=== PATIENT | male | born 1985 | race African-American/Black ===

== ENCOUNTER 2022-12-30 17:33 | Inpatient (IN) | payer MEDICAID ==
[~2022-12-30] VITALS: Ht 162.6 cm; Wt 83.0 kg
[~2022-12-30 17:33] MED LIST: BACL10TA; CLON-857; OXCA300S PO; TOPAMAX; VALPORIC ACID; ZONI100C18
[2022-12-30 18:12] LABS: Basophils # (auto) 0 10 ^3/uL (0-0.2); Basophils % (auto) 0.5 % (0.0-2.0); Eosinophils # (auto) 0.1 10 ^3/uL (0-0.8); Eosinophils % (auto) 1.4 % (0.0-7.0); Hematocrit 44.4 % (41.0-53.0); Hemoglobin 15.1 g/dL (13.5-17.5); Lymphocytes # (auto) 1.5 10 ^3/uL (0.4-5.4); Lymphocytes % (auto) 21.7 % (10.0-50.0); Mean Corpuscular Hemoglobin 32.3 pg (28.0-32.0); Mean Corpuscular Hgb Conc. 33.9 g/dL (32.0-36.0); Mean Corpuscular Volume 95.3 fL (80.0-100.0); Monocytes # (auto) 0.6 10 ^3/uL (0-1.3); Monocytes % (auto) 8.5 % (0.0-12.0); Neutrophils # (auto) 4.8 10 ^3/uL (1.6-8.6); Neutrophils % (auto) 67.9 % (37.0-80.0); Nucleated Red Blood Cells % 0.1 %; Red Blood Cells 4.66 10^6/uL (4.5-5.90); Red Cell Distribution Width 14.1 % (11.8-14.3); White Blood Cell 7.1 10^3/uL (4.4-10.8)
[2022-12-30 18:18] LABS: Urine Bacteria FEW /hpf (None Seen); Urine Blood Negative /uL (Negative); Urine Hyaline Cast MOD /lpf (0 - 2); Urine Mucus FEW (None Seen); Urine Specific Gravity 1.019 (1.001-1.035); Urine WBC 383 /hpf (0 - 3)
[2022-12-30 18:35] LABS: Albumin 3.6 g/dL (3.4-5.0); BUN/Creatinine Ratio 16.8 (10.0-20.0); Calcium 8.7 mg/dL (8.5-10.1); Potassium 4.1 mmol/L (3.5-5.1)
[2022-12-30 18:42] LABS: Bilirubin, Total 0.4 mg/dL (0.2-1.0); Total Protein 6.8 g/dL (6.4-8.2)
[2022-12-30] MEDS ORDERED: cefTRIAXone SOD 1,000 MG VL IV ONE (18:45)
[2022-12-30] MEDS ORDERED: NITROGLYCERIN 0.4 MG SL TAB SL PRN (19:30)
[2022-12-30] MEDS ORDERED: MORPHINE SULFATE INJ 2 MG/ml SYRG IV PRN (19:30)
[2022-12-30] MEDS ORDERED: PHENYTOIN SODIUM 50 MG/ML 2ML VIAL IV ONE (19:30)
[2022-12-30] MEDS ORDERED: SODIUM CHLORIDE 0.9% 1,000 ML IV ONE (19:45)
[2022-12-30] MEDS ORDERED: VANCOMYCIN PER PHARMACY 0 MG IV SCH (19:45)
[2022-12-30 20:41] LABS: Cholesterol 141 mg/dL (< 200); Triglycerides 61 mg/dL (< 150)
[2022-12-30 20:43] LABS: HDL Cholesterol 41 mg/dL (40-59); INR 1.05 (0.9-1.15); LDL Cholesterol 93 mg/dL (< 100); Partial Thromboplastin Time 23.4 sec (24.6-33.4)
[2022-12-30] MEDS: VANCOMYCIN 1GM/250ML 250 ML IV SCH (21:20)
[2022-12-30] MEDS: SODIUM CHLORIDE 0.9% 1,000 ML IV SCH (21:27)
[2022-12-30] MEDS: LORazepam 2MG/ML-1ML VIAL IV PRN (22:11)
[2022-12-30] MEDS: clonazePAM 0.5 MG TAB PO SCH (22:36)
[2022-12-30] MEDS: CEFEPIME 1GM/ 50ML 50 ML IV SCH (22:40)
[2022-12-30 23:35] LABS: Alcohol, Urine < 3.0 mg/dL (0-10); Amphetamine Screen, Urine NEGATIVE (NEGATIVE); Barbiturate Scree,Urine NEGATIVE (NEGATIVE); Benzodiazephine Screen, Urine POSITIVE (NEGATIVE); Cannabinoid Screen, Urine NEGATIVE (NEGATIVE); Cocaine Screen, Urine NEGATIVE (NEGATIVE); Opiate Scree,Urine NEGATIVE (NEGATIVE); Phencyclidine Screen, Urine NEGATIVE (NEGATIVE)
[2022-12-31 03:53] VITALS: BP 126/76
[2022-12-31 05:00] VITALS: BP 121/68
[2022-12-31] MEDS: SODIUM CHLORIDE 0.9% 1,000 ML IV SCH ×2 (05:45→22:51)
[2022-12-31] MEDS: PHENYTOIN SODIUM 50 MG/ML 2ML VIAL IV SCH ×3 (06:12→22:23)
[2022-12-31] MEDS ORDERED: CHOL20007 PO (06:32)
[2022-12-31] MEDS ORDERED: ASPI-498 PO (06:32)
[2022-12-31] MEDS ORDERED: CARI1CAP PO (06:32)
[2022-12-31 06:42] LABS: Basophils # (auto) 0 10 ^3/uL (0-0.2); Basophils % (auto) 0.5 % (0.0-2.0); Eosinophils # (auto) 0.2 10 ^3/uL (0-0.8); Eosinophils % (auto) 1.9 % (0.0-7.0); Hematocrit 42.4 % (41.0-53.0); Hemoglobin 14.7 g/dL (13.5-17.5); Lymphocytes # (auto) 2.1 10 ^3/uL (0.4-5.4); Lymphocytes % (auto) 23.7 % (10.0-50.0); Mean Corpuscular Hemoglobin 32.6 pg (28.0-32.0); Mean Corpuscular Hgb Conc. 34.6 g/dL (32.0-36.0); Mean Corpuscular Volume 94.2 fL (80.0-100.0); Monocytes # (auto) 0.8 10 ^3/uL (0-1.3); Monocytes % (auto) 9.6 % (0.0-12.0); Neutrophils # (auto) 5.6 10 ^3/uL (1.6-8.6); Neutrophils % (auto) 64.3 % (37.0-80.0); Nucleated Red Blood Cells % 0.2 %; Red Cell Distribution Width 13.8 % (11.8-14.3); White Blood Cell 8.7 10^3/uL (4.4-10.8)
[2022-12-31] MEDS: CEFEPIME 1GM/ 50ML 50 ML IV SCH ×3 (06:48→22:52)
[2022-12-31 06:56] LABS: Albumin 3.6 g/dL (3.4-5.0); Calcium 8.6 mg/dL (8.5-10.1)
[2022-12-31 06:59] LABS: Bilirubin, Total 0.5 mg/dL (0.2-1.0); Total Protein 6.2 g/dL (6.4-8.2)
[2022-12-31 09:28] VITALS: BP 137/62
[2022-12-31] MEDS ORDERED: ESLICARBAZEPINE 800 MG PO SCH (10:00)
[2022-12-31] MEDS: clonazePAM 0.5 MG TAB PO SCH ×2 (10:09→22:22)
[2022-12-31] MEDS: ACETAMINOPHEN 325 MG TAB PO PRN (10:09)
[2022-12-31] MEDS: VANCOMYCIN 1GM/250ML 250 ML IV SCH (10:10)
[2022-12-31] MEDS: PANTOPRAZOLE 40 MG/10 ML VIAL INJ IV SCH (10:10)
[2022-12-31] MEDS: ENOXAPARIN SOD 40 MG/0.4 ML SYRINGE SC SCH (10:10)
[2022-12-31] MEDS ORDERED: SODIUM CHLORIDE 0.9% 500 ML IV ONE (10:45)
[2022-12-31] MEDS: LORazepam 2MG/ML-1ML VIAL IV PRN ×2 (11:57→22:21)
[2022-12-31] MEDS ORDERED: LORazepam 2MG/ML-1ML VIAL IV PRN (16:00)
[2022-12-31 17:36] VITALS: BP 106/68
[2022-12-31 22:00] VITALS: BP 110/70
[2023-01-01] MEDS: LORazepam 2MG/ML-1ML VIAL IV PRN ×3 (04:25→22:29)
[2023-01-01 04:32] VITALS: BP 127/75
[2023-01-01] MEDS: PHENYTOIN SODIUM 50 MG/ML 2ML VIAL IV SCH ×3 (05:24→22:28)
[2023-01-01] MEDS: CEFEPIME 1GM/ 50ML 50 ML IV SCH (05:25)
[2023-01-01 09:00] VITALS: BP 155/72
[2023-01-01] MEDS: PANTOPRAZOLE 40 MG/10 ML VIAL INJ IV SCH (09:00)
[2023-01-01] MEDS: cefTRIAXone 1GM/50ML D5W 50 ML IV SCH (09:00)
[2023-01-01] MEDS: clonazePAM 0.5 MG TAB PO SCH ×2 (09:01→22:29)
[2023-01-01] MEDS: ENOXAPARIN SOD 40 MG/0.4 ML SYRINGE SC SCH (09:01)
[2023-01-01] MEDS: APTIOM 800 MG PO SCH (09:04)
[2023-01-01 09:59] LABS: Hepatitis A Total Antibody Positive (Negative)
[2023-01-01] MEDS: ACETAMINOPHEN 325 MG TAB PO PRN ×2 (10:15→22:30)
[2023-01-01 10:46] LABS: BUN/Creatinine Ratio 11.6 (10.0-20.0); Calcium 9.2 mg/dL (8.5-10.1); Potassium 4.2 mmol/L (3.5-5.1)
[2023-01-01 10:56] LABS: Hepatitis B Surface Antibody Positive (Negative)
[2023-01-01 11:16] LABS: Basophils # (auto) 0.1 10 ^3/uL (0-0.2); Basophils % (auto) 0.6 % (0.0-2.0); Eosinophils # (auto) 0.2 10 ^3/uL (0-0.8); Eosinophils % (auto) 2.2 % (0.0-7.0); Hematocrit 46.3 % (41.0-53.0); Hemoglobin 15.6 g/dL (13.5-17.5); Lymphocytes # (auto) 1.9 10 ^3/uL (0.4-5.4); Lymphocytes % (auto) 18.2 % (10.0-50.0); Mean Corpuscular Hemoglobin 32.4 pg (28.0-32.0); Mean Corpuscular Hgb Conc. 33.8 g/dL (32.0-36.0); Monocytes # (auto) 1.3 10 ^3/uL (0-1.3); Monocytes % (auto) 12.3 % (0.0-12.0); Neutrophils # (auto) 7.1 10 ^3/uL (1.6-8.6); Neutrophils % (auto) 66.7 % (37.0-80.0); Nucleated Red Blood Cells % 0.2 %; Red Blood Cells 4.82 10^6/uL (4.5-5.90); Red Cell Distribution Width 14.2 % (11.8-14.3); White Blood Cell 10.7 10^3/uL (4.4-10.8)
[2023-01-01] MEDS: SODIUM CHLORIDE 0.9% 1,000 ML IV SCH ×2 (11:45→22:30)
[2023-01-01 11:52] LABS: Hepatitis C Antibody Negative (Negative)
[2023-01-01 13:00] VITALS: BP 126/65
[2023-01-01 17:00] VITALS: BP 124/72
[2023-01-01 22:00] VITALS: BP 134/70
[2023-01-02] MEDS: PHENYTOIN SODIUM 50 MG/ML 2ML VIAL IV SCH ×2 (06:30→14:42)
[2023-01-02] MEDS: SODIUM CHLORIDE 0.9% 1,000 ML IV SCH (07:24)
[2023-01-02] MEDS: cefTRIAXone 1GM/50ML D5W 50 ML IV SCH (09:33)
[2023-01-02] MEDS: ENOXAPARIN SOD 40 MG/0.4 ML SYRINGE SC SCH (09:34)
[2023-01-02] MEDS: PANTOPRAZOLE 40 MG/10 ML VIAL INJ IV SCH (09:34)
[2023-01-02] MEDS: clonazePAM 0.5 MG TAB PO SCH (09:36)
[2023-01-02] MEDS: APTIOM 800 MG PO SCH (09:36)
[2023-01-02] MEDS ORDERED: NITR-52 PO (10:29)
== END 2023-01-02 16:30 | disposition home health service (06) | DRG 720 ==
LOC: ER 17:33 → EDBD 17:33 → TELE 19:34 → TELE-EAST 12-31 02:35
PROVIDERS: ADMIT Registered Nurse; ATTEND Internal Medicine Pulmonary Disease
PROC: 4A00X4Z Measurement of Central Nervous Electrical Activity, External Approach (ICD-10-PCS; principal; 2022-12-31)
DX: A41.51 Sepsis due to Escherichia coli [E. coli] (principal); E66.01 Morbid (severe) obesity due to excess calories; A41.50 Gram-negative sepsis, unspecified; F84.0 Autistic disorder; G40.909 Epilepsy, unspecified, not intractable, without status epilepticus; G80.9 Cerebral palsy, unspecified; N39.0 Urinary tract infection, site not specified; R74.8 Abnormal levels of other serum enzymes; Z20.822 Contact with and (suspected) exposure to COVID-19; R33.9 Retention of urine, unspecified; N47.8 Other disorders of prepuce; Z68.31 Body mass index [BMI] 31.0-31.9, adult; Z83.3 Family history of diabetes mellitus; Z82.49 Family history of ischemic heart disease and other diseases of the circulatory system
CPT/HCPCS: 36415; 70450; 71045; 74176; 76705; 80048; 80053; 80061; 80307; 81001; 82977; 83036; 83605; 84443; 85025; 85610; 85730; 86704; 86706; 86708; 86803; 87040; 87086; 87088; 87186; 87340; 87426; 93005; 93306; 93886; 95819; 96365; 96375; C9113; G0378; J0696; J7060